=== PATIENT | male | born 1940 | race Caucasian/White ===

== ENCOUNTER 2016-11-09 22:32 | Observation (INO) | payer OTHER ==
--- NOTE | ~2016-11-09 | DS ---
Discharge Summary [facility] [address] [place]. [address] NAME: MARILEE BLAIR JR : 42 STATUS : DIS Joi PAT#: [id number] AGE: 76 ADM/REG DATE : 11/09/16 MR#: [id number] REPORT SERV DATE: 11/20/16 DICTATED BY: KELSIE OTT JR. DATE: 11/19/16 REPORT STATUS : Draft TRANSCRIBED BY: ISIDRA DATE: 11/19/16 Data Collection from hospitalization DISCHARGE DIAGNOSES: 1. 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 2. Shortness of breath. 3. Fatigue. 4. Coronary artery disease. 5. Hypertension. 6. Obstructive sleep apnea. 7. Obesity. CONSULTATIONS: None. PROCEDURES PERFORMED: 1. Cardiac catheterization, 11/11/2016. 2. Myocardial perfusion study, 11/10/2016. MEDICATIONS: Cordarone 200 mg twice a day, Artificial Tears one drop at bedtime, aspirin 81 mg at bedtime, Caltrate 600 mg daily, Coreg 3.125 mg daily, Osteo Bi-Flex one capsule twice a day, Cozaar 50 mg daily as instructed, melatonin 3 mg at bedtime, Centrum tablets one tablet daily, Aleve 220 mg twice a day as needed, Nitrostat 0.4 mg sublingually as needed, Pravachol 20 mg at bedtime, magnesium 500 mg daily, potassium 595 mg daily, garlic 1000 mg daily, Colon Health probiotic one capsule at bedtime, Mucinex one tablet twice a day as needed. CONDITION AT DISCHARGE: Stable. DISPOSITION: The patient was discharged home on a low-sodium, 2 L fluid restriction diet with activities as instructed. He would follow up with me 12/17/2016. HOSPITAL COURSE: This is a 76-year-old man who presented to the hospital with recent unusual fatigue and shortness of breath without definite angina. On the prior to this admission, he had a dizzy spell that was accompanied by palpitations and shortness of breath and he received two shocks from his biventricular ICD. He had multiple ATP treatments. In 2014, he had a coronary arteriogram that had shown nonobstructive circumflex disease and a normal ejection fraction of 60%. Noninducible ventricular tachycardia was seen on his electrophysiology study. He had a normal ejection fraction of 60%. He had done well on sotalol therapy until recently. He was admitted to the hospital at this time for further evaluation and treatment. Upon admission, troponin was normal x2. BNP was elevated at 314. Creatinine level was 1.0. We were going to rule out new myocardial ischemia and we were going to rule out new left ventricular dysfunction. Sotalol was going to be changed to amiodarone pending results of testing. The following day, he had no chest pain. He had undergone a myocardial perfusion imaging study. This had demonstrated mild apical ischemia. Post infusion, left ventricular ejection fraction was 46%. It was felt that he would need to undergo a cardiac catheterization and possible percutaneous coronary intervention. ARB was increased. He had Discharge Summary [address] [place]. [address] NAME: MARILEE BLAIR : 42 STATUS : DIS Joi PAT#: [id number] AGE: 76 ADM/REG DATE : 11/09/16 MR#: [id number] REPORT SERV DATE: 11/20/16 DICTATED BY: KELSIE OTT JR. DATE: 11/19/16 REPORT STATUS : Draft TRANSCRIBED BY: ISIDRA DATE: 11/19/16 no flow-limiting coronary artery disease seen on cardiac catheterization. Left ventriculogram was not performed due to recent echocardiogram which demonstrated normal left ventricular systolic function. He had elevated left ventricular end-diastolic filling pressure. Discharge planning was performed on 11/12/2016. He had no chest pain or shortness of breath. Discharge instructions were given. Due to his improved and stable condition, he was discharged home with the above-stated instructions. Information collected by: Kaity Reese I submit the above information as my discharge summary. TG/ISIDRA Kelsie Ott Jr., M.D. / [id number] CC: Nav Jackson Jr., M.D.
--- NOTE | ~2016-11-09 | HP ---
History And Physical [id number] [place]. [address] NAME: MARILEE BLAIR JR : 42 STATUS : ADM Joi PAT#: [id number] AGE: 76 ADM/REG DATE : 11/09/16 MR#: [id number] REPORT SERV DATE: 11/10/16 DICTATED BY: KELSIE OTT JR. DATE: 11/10/16 REPORT STATUS : Draft TRANSCRIBED BY: MODL DATE: 11/10/16 DATE OF ADMISSION: 11/09/2016 [facility] DIRECTOR OF QUALITY CONTROL: Kelsie Ott M.D. CHIEF COMPLAINT: ICD shocks. HISTORY OF PRESENT ILLNESS: A 76-year-old white male, enters the hospital with recent unusual fatigue and shortness of breath without definite angina. Last evening, he had a dizzy spell accompanied by palpitation, shortness of breath, and received two shocks from his biventricular ICD. Multiple ATP treatments. In 2014, he had a coronary arteriogram, which showed nonobstructive circumflex disease, normal ejection fraction of 60%. Noninducible ventricular tachycardia on Dr. Britt's EP study. He has done well on sotalol therapy until recently. ALLERGIES: TO TIZANIDINE AND METHOCARBAMOL. MEDICATIONS: Home medication list reviewed. Hospital medication list reviewed. SOCIAL HISTORY: . Supportive family. Currently, nonsmoker by history. Occasional alcohol. FAMILY HISTORY: Negative for premature coronary heart disease. PHYSICAL EXAMINATION: VITAL SIGNS: Blood pressure 135/64, pulse is 60 with ectopics, respirations 18, afebrile. HEENT: No xanthelasma. NECK: No JVD at 30 degrees, no thyromegaly, no carotid bruit. LUNGS: Clear to auscultation and percussion. COR: No thrills, heaves, normal S1, S2. No gallop. No rub. No murmur. ABD: Soft, nontender, no hepatosplenomegaly, no mass. EXT: Without edema or pulse deficit. MS: Back without spine or costovertebral angle tenderness. NEURO: Symmetric findings. NODES: No lymphadenopathy. PERTINENT LABORATORY STUDIES: Include a normal troponin on two determinations. BNP is elevated at 314. Potassium 4.2, magnesium 2.2. BUN and creatinine are 19 and 1.0. DISCUSSION: New fatigue, shortness of breath followed by ATP and two shocks from ICD device. PLAN: Rule out new left ventricular dysfunction. Rule out new myocardial ischemia. Change sotalol to amiodarone pending results of testing. History And Physical [address] [place]. [address] NAME: MARILEE BLAIR JR : 42 STATUS : ADM Joi PAT#: [id number] AGE: 76 ADM/REG DATE : 11/09/16 MR#: [id number] REPORT SERV DATE: 11/10/16 DICTATED BY: KELSIE OTT JR. DATE: 11/10/16 REPORT STATUS : Draft TRANSCRIBED BY: ISIDRA DATE: 11/10/16 TORSTEN/ISIDRA Kelsie Ott Jr., M.D. / [id number] CC: Nav Jackson Jr., M.D.
[~2016-11-09 22:32] MED LIST: *UNABLE1; ALEVE220 MG PO; ASAB PO; BETAP120 PO; BETAPACE80 PO; CALCIUM 600 MG PO; CALTRAT600 PO; CENTRUM PO; CENTRUM TAB1 TAB PO; CLARIT10 PO; COLON HEALTH; FISH OIL1200 MG PO; FISH-EPA1000 MG PO; FLOMAX4; FLOMAX4 PO; GARLIC; GARLIC 1000 MG PO; GARLIC OTC PO; GARLIC PO; HALF81 PO; LIPITOR20 PO; LISINOPRIL; LOP25 PO; MAGOX4 PO; MAX25 PO; METAMUCIL CAN7 OZ PO; NATURA2 OPH; NITROSTAT0.4 MG SL; OCEAN NAS; OS CAL PO; OS500+D PO; OSTEO BI-FLEX1 EACH PO; OTC FISH OIL PO; OTC MELATONIN PO; OTC PROBIOTIC PO; PHILLIPS PROBIOTIC PO; POTASSIUM 595 MG PO; POTASSIUM PO; PRAVAC PO; PRIN2.5 PO; PRIN5 PO; TEARS NATURA OPH; THERGRANM PO; ULTRAM50 PO; VICKS SINEX12 HR NAS; VIT D PO; VITAMINS/HERBS; VOLTXR100 PO; ZESTRIL2.5 MG PO; [UNRECOGNIZED DRUG - OTHER] PO
[2016-11-09 22:51] LABS: BASOPHILS 0.5 %; BASOPHILS ABSOLUTE 0.04 10/3/uL (0.0-0.16); EOSINOPHILS 4.7 %; ER CBC TAT 0 Hrs 03 Mins; HEMATOCRIT 40.9 % (40.0-51.0); HEMOGLOBIN 13.9 g/dL (13.6-17.8); IMMATURE GRANULOCYTES 0.7 %; IMMATURE GRANULOCYTES ABSOLUTE 0.06 10/3/uL (0.0-0.11); LYMPHOCYTES 22.3 %; MEAN CORPUSCULAR HEMOGLOB 31.4 pg (26.0-34.0); MEAN CORPUSCULAR VOLUME 92.5 fL (80-100); MEAN PLATELET VOLUME 9.2 fL (9.2-13.0); MONOCYTES 4.9 %; MONOCYTES ABSOLUTE 0.42 10/3/uL (0.21-1.20); NEUTROPHILS 66.9 %; PLATELET COUNT 267 10/3/uL (150-400); RBC DISTRIBUTION WIDTH 13.6 % (12.0-16.0); RED CELL COUNT 4.42 10/6/uL (4.7-6.1); WHITE BLOOD CELLS 8.5 10/3/uL (4.5-10.5)
[2016-11-09 22:53] LABS: MANUAL DIFF NO %
[2016-11-09 23:01] LABS: INTERNATIONAL NORMAL RATI 1.1 UNITS (-); PARTIAL THROMBO TIME 30.4 SEC (22.5-37.2); PROTIME (NOT ORD) 14.1 SEC (12.0-14.5)
[2016-11-09 23:08] LABS: ALBUMIN 3.5 G/DL (3.5-5.0); BUN (BLOOD UREA NITROGEN) 19 MG/DL (6-23); CALCIUM, SERUM 9.5 MG/DL (8.5-10.4); CHEST PAIN PROFILE TAT 0 Hrs 20 Mins; CHLORIDE, SERUM 107 MMOL/L (96-112); CO2 (CARBON DIOXIDE) 27 MMOL/L (24-34); CREATININE 1.02 MG/DL (0.70-1.30); GFR AFRICAN AMERICAN 83 ML/MIN (>=60); GFR NON AFRICAN AMERICAN 72 ML/MIN (>=60); SGPT(ALT) 28 U/L (5-65); SODIUM, SERUM 140 MMOL/L (135-148); TOTAL BILIRUBIN 0.4 MG/DL (0-1.2); TOTAL PROTEIN 6.9 G/DL (6.0-8.5); TROPONIN I 0.03 NG/ML (<0.05)
[2016-11-09 23:10] LABS: ALKALINE PHOSPHATASE 81 U/L (45-117); DIRECT BILIRUBIN < 0.1 MG/DL (0.0-0.4); GLUCOSE, SERUM 153 MG/DL (60-99); INDIRECT BILIRUBIN(NOT ORDER) 0.3 MG/DL (0.1-0.9); POTASSIUM, SERUM 4.2 MMOL/L (3.5-5.3); SGOT(AST) 26 U/L (5-40)
[2016-11-09] MEDS ORDERED: PRAVAC PO (23:50)
[2016-11-09] MEDS ORDERED: COZ25 PO (23:54)
[2016-11-09] MEDS ORDERED: ASAB PO (23:55)
[2016-11-09] MEDS ORDERED: BETAP120 PO (23:55)
[2016-11-09] MEDS ORDERED: MAGNESIUM PO (23:55)
[2016-11-09] MEDS ORDERED: CALTRAT600 PO (23:56)
[2016-11-09] MEDS ORDERED: POTASSIUM PO (23:56)
[2016-11-09] MEDS ORDERED: OSTEO BI-FLEX1 EACH PO (23:56)
[2016-11-09] MEDS ORDERED: CENTRUM PO (23:56)
[2016-11-09] MEDS ORDERED: GARLIC PO (23:57)
[2016-11-09] MEDS ORDERED: [UNRECOGNIZED DRUG - OTHER] PO (23:57)
[2016-11-09] MEDS ORDERED: MELA3 PO (23:57)
[2016-11-09] MEDS ORDERED: NITROSTAT0.4 MG SL (23:58)
[2016-11-09] MEDS ORDERED: MUCINEX PO (23:58)
[2016-11-09] MEDS ORDERED: ALEVE220 MG PO (23:58)
[2016-11-09] MEDS ORDERED: BION TEARS OPH (23:59)
[2016-11-10 06:59] LABS: BASOPHILS 0.6 %; BASOPHILS ABSOLUTE 0.04 10/3/uL (0.0-0.16); EOSINOPHILS 4.9 %; EOSINOPHILS ABSOLUTE 0.33 10/3/uL (0.0-0.53); HEMATOCRIT 36.9 % (40.0-51.0); HEMOGLOBIN 12.5 g/dL (13.6-17.8); IMMATURE GRANULOCYTES 0.7 %; IMMATURE GRANULOCYTES ABSOLUTE 0.05 10/3/uL (0.0-0.11); LYMPHOCYTES 21.9 %; LYMPHOCYTES ABSOLUTE 1.46 10/3/uL (0.67-4.30); MEAN CORPUS HGB CONC 33.9 g/dL (32.0-36.0); MEAN CORPUSCULAR HEMOGLOB 31.5 pg (26.0-34.0); MEAN CORPUSCULAR VOLUME 92.9 fL (80-100); MEAN PLATELET VOLUME 8.8 fL (9.2-13.0); MONOCYTES 6.3 %; MONOCYTES ABSOLUTE 0.42 10/3/uL (0.21-1.20); NEUTROPHILS 65.6 %; NEUTROPHILS ABSOLUTE 4.38 10/3/uL (2.02-8.40); PLATELET COUNT 215 10/3/uL (150-400); RBC DISTRIBUTION WIDTH 13.5 % (12.0-16.0); RED CELL COUNT 3.97 10/6/uL (4.7-6.1); WHITE BLOOD CELLS 6.7 10/3/uL (4.5-10.5)
[2016-11-10 07:00] LABS: MANUAL DIFF NO %
[2016-11-10 07:16] LABS: TROPONIN I 0.04 NG/ML (<0.05)
[2016-11-11 10:16] LABS: INTERNATIONAL NORMAL RATI 1.1 UNITS (-)
[2016-11-11 10:21] LABS: BUN (BLOOD UREA NITROGEN) 14 MG/DL (6-23); CHLORIDE, SERUM 107 MMOL/L (96-112); CHOL/HDL RATIO(NOT ORDER) 2.9 (0-5); CHOLESTEROL 122 MG/DL (< 200); CO2 (CARBON DIOXIDE) 26 MMOL/L (24-34); CREATININE 1.06 MG/DL (0.70-1.30); GFR AFRICAN AMERICAN 79 ML/MIN (>=60); GFR NON AFRICAN AMERICAN 68 ML/MIN (>=60); GLUCOSE, SERUM 101 MG/DL (60-99); HDL CHOLESTEROL 42 MG/DL (> 39); LDL CHOLESTEROL 58 MG/DL (< 130); NON-HDL CHOLESTEROL 80 MG/DL (< 160); POTASSIUM, SERUM 4.2 MMOL/L (3.5-5.3); SODIUM, SERUM 141 MMOL/L (135-148); TRIGLYCERIDE 112 MG/DL (< 150)
[2016-11-11 10:27] LABS: BASOPHILS 0.7 %; BASOPHILS ABSOLUTE 0.05 10/3/uL (0.0-0.16); EOSINOPHILS 5.7 %; EOSINOPHILS ABSOLUTE 0.41 10/3/uL (0.0-0.53); HEMATOCRIT 39.6 % (40.0-51.0); HEMOGLOBIN 13.3 g/dL (13.6-17.8); IMMATURE GRANULOCYTES 0.7 %; IMMATURE GRANULOCYTES ABSOLUTE 0.05 10/3/uL (0.0-0.11); LYMPHOCYTES 20.5 %; LYMPHOCYTES ABSOLUTE 1.48 10/3/uL (0.67-4.30); MEAN CORPUS HGB CONC 33.6 g/dL (32.0-36.0); MEAN CORPUSCULAR HEMOGLOB 31.3 pg (26.0-34.0); MEAN CORPUSCULAR VOLUME 93.2 fL (80-100); MEAN PLATELET VOLUME 9.1 fL (9.2-13.0); MONOCYTES 6.2 %; MONOCYTES ABSOLUTE 0.45 10/3/uL (0.21-1.20); NEUTROPHILS 66.2 %; NEUTROPHILS ABSOLUTE 4.78 10/3/uL (2.02-8.40); PLATELET COUNT 255 10/3/uL (150-400); RBC DISTRIBUTION WIDTH 13.4 % (12.0-16.0); RED CELL COUNT 4.25 10/6/uL (4.7-6.1); WHITE BLOOD CELLS 7.2 10/3/uL (4.5-10.5)
[2016-11-11 10:28] LABS: MANUAL DIFF NO %
[2016-11-12 04:28] LABS: BASOPHILS 0.6 %; BASOPHILS ABSOLUTE 0.04 10/3/uL (0.0-0.16); EOSINOPHILS 4.7 %; HEMATOCRIT 39.6 % (40.0-51.0); HEMOGLOBIN 13.3 g/dL (13.6-17.8); IMMATURE GRANULOCYTES 0.9 %; IMMATURE GRANULOCYTES ABSOLUTE 0.06 10/3/uL (0.0-0.11); LYMPHOCYTES 19.1 %; LYMPHOCYTES ABSOLUTE 1.23 10/3/uL (0.67-4.30); MEAN CORPUS HGB CONC 33.6 g/dL (32.0-36.0); MEAN CORPUSCULAR HEMOGLOB 31.2 pg (26.0-34.0); MONOCYTES 6.8 %; MONOCYTES ABSOLUTE 0.44 10/3/uL (0.21-1.20); NEUTROPHILS 67.9 %; NEUTROPHILS ABSOLUTE 4.38 10/3/uL (2.02-8.40); PLATELET COUNT 243 10/3/uL (150-400); RBC DISTRIBUTION WIDTH 13.4 % (12.0-16.0); RED CELL COUNT 4.26 10/6/uL (4.7-6.1); WHITE BLOOD CELLS 6.5 10/3/uL (4.5-10.5)
[2016-11-12 04:29] LABS: MANUAL DIFF NO %
[2016-11-12 04:44] LABS: BUN (BLOOD UREA NITROGEN) 16 MG/DL (6-23); CALCIUM, SERUM 9.2 MG/DL (8.5-10.4); CHLORIDE, SERUM 106 MMOL/L (96-112); CO2 (CARBON DIOXIDE) 27 MMOL/L (24-34); GFR AFRICAN AMERICAN 76 ML/MIN (>=60); GFR NON AFRICAN AMERICAN 65 ML/MIN (>=60); GLUCOSE, SERUM 116 MG/DL (60-99); SODIUM, SERUM 140 MMOL/L (135-148); TROPONIN I 0.03 NG/ML (<0.05)
[2016-11-12 04:51] LABS: CPK (IF ELEVATED MB BANDS) 45 U/L (0-200); POTASSIUM, SERUM 4.5 MMOL/L (3.5-5.3)
[2016-11-12] MEDS ORDERED: CORDARONE PO (09:36)
[2016-11-12] MEDS ORDERED: COZ50 PO (09:40)
[2016-11-12] MEDS ORDERED: COREG3 PO (09:44)
== END 2016-11-12 11:20 | disposition home or self-care (01) ==
LOC: ER 22:32 → 7NO 23:53
PROVIDERS: Emergency Medicine; Internal Medicine Cardiovascular Disease
DX: I47.2 Ventricular tachycardia (principal); R55 Syncope and collapse; I10 Essential (primary) hypertension; I25.10 Atherosclerotic heart disease of native coronary artery without angina pectoris; G47.33 Obstructive sleep apnea (adult) (pediatric); E66.9 Obesity, unspecified; Z95.810 Presence of automatic (implantable) cardiac defibrillator; Z68.36 Body mass index [BMI] 36.0-36.9, adult
CPT/HCPCS: 71010; 78452; 80048; 80061; 80076; 82550; 83735; 83880; 84460; 84484; 85025; 85610; 85730; 93005; 93017; 93458; 96374; 99152; 99153; 99291; A9270-GY; A9502; C1769; C1894; C8929; G0378; J0153; J0282; J1200; J2250; J3010; Q9957; Q9967